=== PATIENT | female | born 1995 | race Caucasian/White ===

== ENCOUNTER 2017-07-14 16:47 | Emergency (ER) | payer MEDICAID ==
[~2017-07-14] VITALS: Ht 170.2 cm; Wt 96.6 kg
[2017-07-14 16:52] VITALS: BP 130/87; Ht 170.2 cm; Wt 96.6 kg
== END 2017-07-14 19:11 | disposition left against medical advice (07) ==
LOC: ED 16:47
DX: Z53.21 Procedure and treatment not carried out due to patient leaving prior to being seen by health care provider (principal)

== ENCOUNTER 2017-07-14 19:12 | Emergency (ER) | payer MEDICAID ==
[~2017-07-14] VITALS: Ht 170.2 cm; Wt 96.6 kg
[2017-07-14 19:19] VITALS: BP 130/75; Ht 170.2 cm; Wt 96.6 kg
== END 2017-07-14 22:23 | disposition left against medical advice (07) ==
LOC: ED 19:12
DX: Z53.21 Procedure and treatment not carried out due to patient leaving prior to being seen by health care provider (principal)